=== PATIENT | male | born 1975 | race Caucasian/White ===

== ENCOUNTER 2018-02-25 17:08 | Emergency (ER) | payer SELFPAY ==
[2018-02-25] MEDS ORDERED: cefTRIAXone 1,000 MG in Lidocaine 1% 4 ML IM ONE (17:35)
--- NOTE | 2018-02-25 17:40 | EDM.PDOC ---
ED HPI GENERAL MEDICAL PROBLEM - General Chief Complaint: General Stated Complaint: RIGHT SIDE ABCESS Time Seen by Provider: 02/25/18 17:35 Source of Information: Reports: Patient - History of Present Illness INITIAL COMMENTS - FREE TEXT/NARRATIVE: HISTORY AND PHYSICAL: History of present illness: [Patient presents with swelling on right lower jawline consistent with dental abscess He is from [place] under the care of a dentist in that area , history of a molar t tooth pulled 4 months prior, he does have poor dentition in general severe decay noted an area of swelling Patient denies fever nausea vomiting chills sweats he can speak clearly no muffled voice, or drooling Patient has apparently obtained a dental appointment which he can follow on Wednesday locally as he is in town for a month Review of systems: As per history of present illness and below otherwise all systems reviewed and negative. Past medical history: As per history of present illness and as reviewed below otherwise noncontributory. Surgical history: As per history of present illness and as reviewed below otherwise noncontributory. Social history: No reported history of drug or alcohol abuse. Family history: As per history of present illness and as reviewed below otherwise noncontributory. Physical exam: HEENT: Atraumatic, normocephalic, pupils reactive, negative for conjunctival pallor or scleral icterus, mucous membranes moist, throat clear, neck supple, nontender, trachea midline. Swelling and tenderness along right jawline consistent with abscess Lungs: Clear to auscultation, breath sounds equal bilaterally, chest nontender. Heart: S1S2, regular, negative for clicks, rubs, or JVD. Abdomen: Soft, nondistended, nontender. Negative for masses or hepatosplenomegaly. Negative for costovertebral tenderness. Pelvis: Stable nontender. Genitourinary: Deferred. Rectal: Deferred. Extremities: Atraumatic, negative for cords or calf pain. Neurovascular unremarkable. Neuro: Awake, alert, oriented. Cranial nerves II through XII unremarkable. Cerebellum unremarkable. Motor and sensory unremarkable throughout. Exam nonfocal. Diagnostics: [Clinical ] Therapeutics: [1 g Rocephin IM Augmentin 875 per 125 by mouth twice a day #20 no refill Ibuprofen Return if symptoms persist or worsen or new concerning symptoms develop] Impression: [ dental abscess ] Definitive disposition and diagnosis as appropriate pending reevaluation and review of above. Oral/Mouth Pain Score (Numeric/FACES): 5 - Related Data Allergies Allergy/AdvReac Type Severity Reaction Status Date / Time No Known Allergies Allergy Verified 02/25/18 17:31 Home Meds: Home Meds . [No Known Home Meds] 02/25/18 [History] Past Medical History - Past Health History Medical/Surgical History: Denies Medical/Surgical History - Infectious Disease History Infectious Disease History: Reports: Chicken Pox Social & Family History - Family History Family Medical History: Noncontributory - Tobacco Use Smoking Status *Q: Current Every Day Smoker Years of Tobacco use: 30 Packs/Tins Daily: 1 - Caffeine Use Caffeine Use: Reports: Coffee - Recreational Drug Use Recreational Drug Use: No ED ROS GENERAL - Review of Systems Review Of Systems: See Below ED EXAM, GENERAL - Physical Exam Exam: See Below Course - Vital Signs Last Recorded V/S: Last Vital Signs Temp 100.0 F 02/25/18 17:27 Pulse 119 H 02/25/18 17:27 Resp 20 02/25/18 17:27 BP 138/85 02/25/18 17:27 Pulse Ox 95 02/25/18 17:27 - Orders/Labs/Meds Orders: Active Orders 24 hr Category Date Time Status cefTRIAXone [Rocephin] 1,000 mg Med 02/25/18 17:35 Ordered Lidocaine 1% [Xylocaine-MPF 1%] 4 ml IM ONETIME Departure - Departure Time of Disposition: 17:39 Disposition: Home, Self-Care 01 Condition: Good Clinical Impression: Dental abscess - Discharge Information Referrals: PCP,None [Primary Care Provider] - Additional Instructions: Medication as prescribed Ibuprofen 400-800 mg by mouth 3 times daily 7-10 days Follow-up Wednesday with your dentist as scheduled locally Return if symptoms persist or worsen despite antibiotics or if new concerning symptoms develop The following information is given to patients seen in the emergency department who are being discharged to home. This information is to outline your options for follow-up care. We provide all patients seen in our emergency department with a follow-up referral. The need for follow-up, as well as the timing and circumstances, are variable depending upon the specifics of your emergency department visit. If you don't have a primary care physician on staff, we will provide you with a referral. We always advise you to contact your personal physician following an emergency department visit to inform them of the circumstance of the visit and for follow-up with them and/or the need for any referrals to a consulting specialist. The emergency department will also refer you to a specialist when appropriate. This referral assures that you have the opportunity for follow-up care with a specialist. All of these measure are taken in an effort to provide you with optimal care, which includes your follow-up. Under all circumstances we always encourage you to contact your private physician who remains a resource for coordinating your care. When calling for follow-up care, please make the office aware that this follow-up is from your recent emergency room visit. If for any reason you are refused follow-up, please contact the [facility] emergency department at and asked to speak to the emergency department charge nurse. - My Orders Last 24 Hours: My Active Orders 02/25/18 17:35 cefTRIAXone [Rocephin] 1,000 mg Lidocaine 1% [Xylocaine-MPF 1%] 4 ml IM ONETIME - Assessment/Plan Last 24 Hours: My Active Orders 02/25/18 17:35 cefTRIAXone [Rocephin] 1,000 mg Lidocaine 1% [Xylocaine-MPF 1%] 4 ml IM ONETIME
== END 2018-02-25 18:05 | disposition home or self-care (01) ==
LOC: MW.ED 17:08
DX: K04.7 Periapical abscess without sinus (principal); F17.210 Nicotine dependence, cigarettes, uncomplicated
CPT/HCPCS: 96372; 99282; J0696; J2001

== ENCOUNTER 2018-02-27 06:12 | Emergency (ER) | payer OTHER ==
[2018-02-27] MEDS ORDERED: Benzocaine 20% Topical Spray UD MUCMEM ONE (06:31)
[2018-02-27] MEDS ORDERED: Lidocaine 2% Viscous Solution 15 ML Cup PO ONE (06:31)
--- NOTE | 2018-02-27 06:38 | EDM.PDOC ---
ED HPI GENERAL MEDICAL PROBLEM - General Chief Complaint: ENT Problem Stated Complaint: TOOTH PAIN Time Seen by Provider: 02/27/18 06:27 Source of Information: Reports: Patient History Limitations: Reports: No Limitations - History of Present Illness INITIAL COMMENTS - FREE TEXT/NARRATIVE: HISTORY AND PHYSICAL: History of present illness: 42-year-old male presenting emergency department with chief complaint of right lower dental pain. Patient was seen here on 02/25/18 for similar issue. He was given 1 g of Rocephin IM as well as a prescription for Augmentin 875 by mouth twice a day 10 days. Patient states that he is having more pain and is now extending into the right side of his neck. He denies any fevers, chills, malaise, nausea, vomiting, abdominal pain, diarrhea, chest pain, palpitations, shortness breath, syncopal episodes, focal neurologic deficits. He does not drool and speaks clearly. Patient is from [place] and has had molar extractions previously. States that his insurance does not cover for dentistry in [place] but he has contacted provider this 25 miles out of town. States that he left a message in his going to call them again as they are closed on the weekend. Oral exam shows poor dentition. There are bilateral molars extracted. There is decay of tooth #29. There is pain on tapping extending into the right jaw and neck. Bilateral Submandibular nodes are enlarged and they're tender to palpation. Anterior cervical nodes on right are also enlarged and tender to palpation. Review of systems: As per history of present illness and below otherwise all systems reviewed and negative. Past medical history: As per history of present illness and as reviewed below otherwise noncontributory. Surgical history: As per history of present illness and as reviewed below otherwise noncontributory. Social history: No reported history of drug or alcohol abuse. Family history: As per history of present illness and as reviewed below otherwise noncontributory. Physical exam: HEENT: Atraumatic, normocephalic, pupils reactive, negative for conjunctival pallor or scleral icterus, mucous membranes moist, throat clear, neck supple, nontender, trachea midline. Lungs: Clear to auscultation, breath sounds equal bilaterally, chest nontender. Heart: S1S2, regular, negative for clicks, rubs, or JVD. Abdomen: Soft, nondistended, nontender. Negative for masses or hepatosplenomegaly. Negative for costovertebral tenderness. Pelvis: Stable nontender. Genitourinary: Deferred. Rectal: Deferred. Extremities: Atraumatic, negative for cords or calf pain. Neurovascular unremarkable. Neuro: Awake, alert, oriented. Cranial nerves II through XII unremarkable. Cerebellum unremarkable. Motor and sensory unremarkable throughout. Exam nonfocal. Diagnostics: [] Therapeutics: Dental balls Impression: Dental abscess Plan: Patient had some relief with the dental balls. He was discharged in good condition with instructions to continue taking antibiotics and follow-up with his dentist. Is also instructed return to emergency department if he had any new or worsening symptoms. Definitive disposition and diagnosis as appropriate pending reevaluation and review of above. right teeth Pain Score (Numeric/FACES): 8 - Related Data Allergies Allergy/AdvReac Type Severity Reaction Status Date / Time No Known Allergies Allergy Verified 02/27/18 06:17 Home Meds: Home Meds . [Unable to Verify Home Med List] 02/27/18 [History] Past Medical History - Past Health History Medical/Surgical History: Denies Medical/Surgical History - Infectious Disease History Infectious Disease History: Reports: Chicken Pox Social & Family History - Family History Family Medical History: Noncontributory - Tobacco Use Smoking Status *Q: Current Every Day Smoker Years of Tobacco use: 30 Packs/Tins Daily: 1 - Caffeine Use Caffeine Use: Reports: Coffee, Energy Drinks - Recreational Drug Use Recreational Drug Use: No ED ROS GENERAL - Review of Systems Review Of Systems: ROS reveals no pertinent complaints other than HPI. ED EXAM, GENERAL - Physical Exam Exam: See Below Course - Vital Signs Last Recorded V/S: Last Vital Signs Temp 95.9 F 02/27/18 06:18 Pulse 121 H 02/27/18 06:18 Resp 18 02/27/18 06:18 BP 136/82 02/27/18 06:18 Pulse Ox 98 02/27/18 06:18 - Orders/Labs/Meds Meds: Medications Discontinued Medications Generic Name Dose Route Start Last Admin Trade Name Freq PRN Reason Stop Dose Admin Benzocaine 2 each 02/27/18 06:31 02/27/18 06:36 Hurricaine One 20% MUCMEM 02/27/18 06:32 2 each ONETIME ONE Administration Lidocaine HCl 15 ml 02/27/18 06:31 0603/18 06:36 Xylocaine 2% Viscous PO 02/27/18 06:32 15 ml ONETIME ONE Administration Departure - Departure Time of Disposition: 06:59 Disposition: Home, Self-Care 01 Condition: Good Clinical Impression: Dental abscess - Discharge Information Referrals: PCP,None [Primary Care Provider] - Forms: ED Department Discharge Additional Instructions: My general discharge The following information is given to patients seen in the emergency department who are being discharged to home. This information is to outline your options for follow-up care. We provide all patients seen in our emergency department with a follow-up referral. The need for follow-up, as well as the timing and circumstances, are variable depending upon the specifics of your emergency department visit. If you don't have a primary care physician on staff, we will provide you with a referral. We always advise you to contact your personal physician following an emergency department visit to inform them of the circumstance of the visit and for follow-up with them and/or the need for any referrals to a consulting specialist. The emergency department will also refer you to a specialist when appropriate. This referral assures that you have the opportunity for follow-up care with a specialist. All of these measure are taken in an effort to provide you with optimal care, which includes your follow-up. Under all circumstances we always encourage you to contact your private physician who remains a resource for coordinating your care. When calling for follow-up care, please make the office aware that this follow-up is from your recent emergency room visit. If for any reason you are refused follow-up, please contact the [facility] Department at and asked to speak to the emergency department charge nurse. [facility] [address] [place] [id number] [address] Continue taking antibiotics as prescribed. Use ibuprofen and Tylenol for pain relief and inflammation. Continue using dental balls as needed for numbing. Return to emergency department if any new or worsening symptoms.
== END 2018-02-27 07:12 | disposition home or self-care (01) ==
LOC: MW.ED 06:12
DX: K04.7 Periapical abscess without sinus (principal); F17.210 Nicotine dependence, cigarettes, uncomplicated
CPT/HCPCS: 99282; A9270

== ENCOUNTER 2022-02-26 16:37 | Emergency (ER) | payer SELFPAY ==
[2022-02-26] MEDS ORDERED: Lidocaine 1% 5 ML VIAL INJECT ONE (16:58)
[2022-02-26] MEDS ORDERED: Lidocaine 2% Viscous Solution 15 ML UD PO ONE (17:18)
[2022-02-26] MEDS ORDERED: Benzocaine 20% Topical Spray UD MUCMEM ONE (17:18)
== END 2022-02-26 18:16 | disposition home or self-care (01) ==
LOC: MW.ED 16:37
DX: K04.7 Periapical abscess without sinus (principal)
CPT/HCPCS: 41008; 99282; A9270